=== PATIENT | female | born 1990 | race Caucasian/White ===

== ENCOUNTER → 2022-05-05 13:21 | Outpatient (CLI) | payer OTHER, SELFPAY ==
--- NOTE | ~2022-05-05 | US_ITS ---
EXAMINATION: US OB <= 14 weeks fetus DATE: 05/05/2022 14:03 INDICATION: First trimester dating TECHNIQUE: Real-time pelvic transabdominal and transvaginal ultrasound was performed. COMPARISON: None. FINDINGS: The uterus measures 8.7 x 5.7 x 7.8 cm. There is an intrauterine gestational sac. A yolk s ac is identified. heart motion is identified measuring 168 beats per minute (bpm) by M-mode Dop pler. The crown rump length measures 3.5 cm , which correlates with an estimated gestational ag e of 10 weeks and 3 day(s) (+/-) 7 day(s). The right ovary is not visualized however no right adnexal abnormality is seen. The left ovary measur es 2.1 x 1.8 x 2.2 cm. There is normal vascular flow in the left ovary. There is no free fluid in the pelvis. IMPRESSION: 1. Live intrauterine with an estimated gestational age of 10 weeks and 3 day(s) (+/-) 7 day (s) and an estimated delivery date of 11/28/2022. Reviewed, dictated and finalized at location A. IMPRESSION: 1. Live intrauterine with an estimated gestational age of 10 weeks an d 3 day(s) (+/-) 7 day(s) and an estimated delivery date of 11/28/2022.
== END ==
PROVIDERS: PCP Advanced Practice Midwife; Visit Provider Advanced Practice Midwife
DX: Z36.87 Encounter for antenatal screening for uncertain dates (principal); Z3A.10 10 weeks gestation of pregnancy
CPT/HCPCS: 76801